=== PATIENT | female | born 1995 | race Caucasian/White ===

== ENCOUNTER 2017-09-28 08:56 | Emergency (ER) | payer OTHER ==
[2017-09-28] MEDS: KETOROLAC 30 MG INJ IM (11:31)
== END 2017-09-28 12:50 | disposition home or self-care (01) ==
LOC: FTE 08:56
DX: R51 Headache (principal)
CPT/HCPCS: 81025; 96372; 99284-25

== ENCOUNTER 2018-06-05 14:07 | Emergency (ER) | payer OTHER ==
[2018-06-05] MEDS: ACETAMINOPHEN 325 MG TAB PO (16:31)
== END 2018-06-05 18:02 | disposition home or self-care (01) ==
LOC: FTE 14:07
DX: M54.2 Cervicalgia (principal)
CPT/HCPCS: 72040; 99283-25